=== PATIENT | female | born 1935 | race Caucasian/White ===

== ENCOUNTER 2017-09-15 19:58 | Inpatient (IN) | payer MEDICARE ==
[~2017-09-15] VITALS: Ht 160 cm; Wt 44.1 kg
--- NOTE | 2017-09-15 22:00 | NUR ---
TO BED 4 [facility] C/O PT RUFUSING TO EAT OR TAKE MEDS, AGRESSIVE AND COMBATIVE PER EMT TRANSPORT REPORT. PT CONFUSED, NO ACUTE DISTRESS NOTED, RESP EVEN AND UNLABORED. PENDING ER MD VILLARREAL.
[2017-09-15] MEDS ORDERED: OLANZAPINE 10 MG VIAL IM ONE ×2 (22:17→22:30)
--- NOTE | 2017-09-15 22:22 | NUR ---
PT MEDICATED ORDERED.
[2017-09-15 23:00] LABS: CALCIUM, SERUM 8.4 mg/dL (8.5-10.1); CARBON DIOXIDE 30 mmol/L (21-32); CHLORIDE 113 mmol/L (98-107); CREATININE 0.9 mg/dL (0.6-1.3); GLUCOSE 91 mg/dL (74-106); POTASSIUM 2.9 mmol/L (3.5-5.1); SODIUM SERUM 151 mmol/L (136-145); UREA NITROGEN, BLOOD 22 mg/dL (7-18)
[2017-09-15 23:02] LABS: INR 0.93 (0.87-1.13); PROTHROMBIN TIME 9.7 SECS (9.5-12.7)
[2017-09-15 23:04] LABS: BASOPHILS % (AUTO) 0.7 % (0.0-2.0); EOSINOPHILS # (AUTO) 0.1 /CMM (0.0-0.7); EOSINOPHILS % (AUTO) 2.2 % (0.0-6.0); HEMATOCRIT 39 % (33-45); HEMOGLOBIN 13.3 g/dL (11.5-14.8); LYMPHOCYTES # (AUTO) 1.1 /CMM (0.8-4.8); LYMPHOCYTES % (AUTO) 26.1 % (20.0-44.0); MEAN CORPUSCULAR HEMOGLOBIN 30 PG (26.0-33.0); MEAN CORPUSCULAR HGB CONC 34 g/dl (31.0-36.0); MEAN CORPUSCULAR VOLUME 90 fL (82-100); MONOCYTES # (AUTO) 0.5 /CMM (0.1-1.30); MONOCYTES % (AUTO) 11.1 % (2.0-12.0); NEUTROPHILS # (AUTO) 2.5 /CMM (1.8-8.9); NEUTROPHILS % (AUTO) 59.9 % (43.0-81.0); PLATELET COUNT (AUTO) 158 /CMM (150-450); RDW COEFFICIENT OF VARIATION 13.5 (11.5-15.0); RED BLOOD CELL COUNT(AUTO) 4.39 MIL/uL (4.0-5.2); WHITE BLOOD COUNT (AUTO) 4.2 K/uL (4.3-11.0)
[2017-09-15 23:09] LABS: ALANINE AMINOTRANSFERASE 36 U/L (12-78); ALBUMIN 2.7 g/dL (3.4-5.0); ALCOHOL, BLOOD < 3 mg/dL (0-0); ALKALINE PHOSPHATASE 72 U/L (46-116); ASPARTATE AMINOTRANSFERASE 32 U/L (15-37); BILIRUBIN,DIRECT 0.1 mg/dL (0.0-0.2); BILIRUBIN,TOTAL 0.3 mg/dL (0.2-1.0); TOTAL PROTEIN, SERUM 6.2 g/dL (6.4-8.2)
[2017-09-15 23:10] LABS: ACETAMINOPHEN < 2 ug/ml (10-30); SALICYLATE 0.8 mg/dL (2.8-20.0)
[2017-09-15] MEDS ORDERED: Magnesium 1 GM/2 ML VIAL IV ONE (23:30)
[2017-09-15] MEDS ORDERED: POTASSIUM CHLORIDE 20 MEQ TAB.PRT.SR PO ONE (23:30)
[2017-09-15] MEDS ORDERED: IV NS 0.9% 500 ML BAG IV ONE (23:30)
[2017-09-15] MEDS ORDERED: POTASSIUM CHLORIDE 10 MEQ TABLET.SA ONE (23:41)
[2017-09-15] MEDS ORDERED: Magnesium 1GM/D5W 100ML PREMIX 200 ML IV ONE (23:41)
[2017-09-16] MEDS ORDERED: LORAZEPAM INJ 2 MG/ML VIAL ONE
--- NOTE | 2017-09-16 00:01 | NUR ---
PT PULLED OUT SL, 2X2 APPLIED. RESTARTED ON THE L HAND 18G.
[2017-09-16] MEDS ORDERED: LORAZEPAM INJ 2 MG/ML VIAL IV ONE (01:00)
[2017-09-16] MEDS ORDERED: IV NS 0.9% 1,000 ML BAG IV ONE (01:00)
[2017-09-16 01:57] LABS: APPEARANCE,URINE SL CLOUDY (CLEAR); BILIRUBIN,URINE NEGATIVE (NEGATIVE); BLOOD, URINE NEGATIVE Ery/uL (NEGATIVE); COLOR,URINE YELLOW (YELLOW); KETONES,URINE TRACE (NEGATIVE); LEUKOCYTE ESTERASE ,URINE NEGATIVE (NEGATIVE); NITRITE, URINE NEGATIVE (NEGATIVE); PROTEIN,URINE TRACE mg/dl (NEGATIVE); UGLUCOSE NEGATIVE (NEGATIVE); UROBILINOGEN,URINE 0.2 EU/dL (0.2)
[2017-09-16] MEDS ORDERED: POTASSIUM CHLORIDE 20 MEQ TAB.PRT.SR PO ONE ×4 (02:00→17:30)
--- NOTE | 2017-09-16 02:10 | NUR ---
ER TALKING TO BABAK LIMA REGARDING PT ADMISSION.
[2017-09-16 02:29] LABS: BACTERIA,URINE Many /HPF (None Seen); RBC,URINE NONE SEEN /HPF (0-2); SQUAMOUS EPITHELIAL CELL,UR Few /HPF (None Seen); WBC,URINE 0-2 /HPF (0-3)
--- NOTE | 2017-09-16 02:31 | NUR ---
PT ASLEEP, NO ACUTE DISTRESS NOTED, RESP EVEN AND UNLABORED. CALL LIGHT WITHIN REACH. WILL CONTINUE TO MONITOR PT CLOSELY.
--- NOTE | 2017-09-16 02:37 | NUR ---
REPORT CALLED TO M/S KATELYNN HERNÁNDEZ. WILL TRANSPORT PT TO ROOM 311-1.
[2017-09-16 03:00] VITALS: BP 147/92
--- NOTE | 2017-09-16 03:00 | NUR ---
RECEIVED PATIENT FROM ER, AROUSEABLE BY VOICE AND TOUCH, NON-VERBAL, CALM AT THIS TIME, WAS GIVEN ATIVAN AND ZYPREXA IN ER SECONDARY TO COMBATIVENESS, LUNG SOUNDS ARE CLEAR ON AUSCULTATION, ON 2LPM VIA NC, SPO2 96%, ABDOMEN SOFT AND NON-TENDER, HYPOACTIVE BOWEL SOUNDS, LEFT HAND PERIPHERAL LINE IS FLUSHED AND SECURED WITH LENA SLEEVE, PATIENT PULLED OUT IV IN ER PER REPORT. NOTED GENERALIZED RASHES ON BILATERAL ARMS, BILATERAL FEET AND BILATERAL LEGS WITH SCRATCH PARKER AND SCANT DRY BLOOD. NOTIFIED NUTRITIONAL SERVICES HOST AND RECEIVED ORDER OF BILATERAL MITTENS. UNABLE TO ORIENT TO ROOM AND CALL LIGHT SECONDARY TO CONFUSION AND BEING SLEEPY. GIVEN SPONGE BATH, KEPT SAFE AND COMFORTABLE, BED ALARM TURNED ON FOR SAFETY.
[2017-09-16 03:30] VITALS: BP 147/92
[2017-09-16] MEDS ORDERED: ZOLPIDEM TARTRATE 5 MG TABLET PO PRN (04:30)
[2017-09-16] MEDS ORDERED: Z GUARD REMEDY 2 OZ OINT TP PRN (04:30)
[2017-09-16] MEDS ORDERED: ONDANSETRON HCL/PF 4 MG/2 ML VIAL IVP PRN (04:30)
[2017-09-16] MEDS ORDERED: ACETAMINOPHEN 325 MG TABLET PO PRN (04:30)
[2017-09-16] MEDS ORDERED: HYDROCODONE/APAP 5/325MG 1 EACH TABLET PO PRN (04:30)
[2017-09-16] MEDS ORDERED: MAGNESIUM HYDROXIDE 30 ML UDC PO PRN (04:30)
[2017-09-16] MEDS ORDERED: CEFTRIAXONE 1 G VIAL ONE (04:58)
[2017-09-16] MEDS: ENOXAPARIN SODIUM 40 MG/0.4 ML DISP.SYRIN SQ SCH (05:03)
[2017-09-16] MEDS: CEFTRIAXONE 1 G in IV D5W 50 ML IV SCH (05:04)
[2017-09-16] MEDS: IV NS 0.9% 1,000 ML IV PRN ×2 (05:04→17:46)
[2017-09-16 06:23] LABS: BASOPHILS % (AUTO) 0.6 % (0.0-2.0); EOSINOPHILS # (AUTO) 0.1 /CMM (0.0-0.7); EOSINOPHILS % (AUTO) 3.4 % (0.0-6.0); HEMATOCRIT 38 % (33-45); HEMOGLOBIN 12.9 g/dL (11.5-14.8); LYMPHOCYTES # (AUTO) 1.1 /CMM (0.8-4.8); LYMPHOCYTES % (AUTO) 32.8 % (20.0-44.0); MEAN CORPUSCULAR HEMOGLOBIN 31 PG (26.0-33.0); MEAN CORPUSCULAR HGB CONC 34 g/dl (31.0-36.0); MEAN CORPUSCULAR VOLUME 90 fL (82-100); MONOCYTES # (AUTO) 0.4 /CMM (0.1-1.30); MONOCYTES % (AUTO) 10.6 % (2.0-12.0); NEUTROPHILS # (AUTO) 1.8 /CMM (1.8-8.9); NEUTROPHILS % (AUTO) 52.6 % (43.0-81.0); PLATELET COUNT (AUTO) 120 /CMM (150-450); RDW COEFFICIENT OF VARIATION 14.1 (11.5-15.0); RED BLOOD CELL COUNT(AUTO) 4.19 MIL/uL (4.0-5.2); WHITE BLOOD COUNT (AUTO) 3.4 K/uL (4.3-11.0)
--- NOTE | 2017-09-16 06:28 | NUR ---
RN NOTES PATIENT IS AWAKE AND ALERT, UNABLE TO VERBALIZE NEEDS, DOES NOT NOT ANSWER TO QUESTIONS, NOT FOLLOWING SIMPLE COMMANDS, CONFUSED. NO SOB, NO DISTRESS, TOLERATING 2LPM VIA NC, SPO2 REMAINED 96%, LEFT HAND PERIPHERAL LINE IS PATENT AND INFUSING WELL. KEPT SAFE AND COMFORTABLE, CALL LIGHT WITHIN REACH.
[2017-09-16 06:43] LABS: CALCIUM, SERUM 7.7 mg/dL (8.5-10.1); CHLORIDE 113 mmol/L (98-107); CREATININE 0.8 mg/dL (0.6-1.3); GLUCOSE 83 mg/dL (74-106); MAGNESIUM 2.8 mg/dL (1.8-2.4); PHOSPHORUS 3.1 mg/dL (2.5-4.9); SODIUM SERUM 148 mmol/L (136-145); UREA NITROGEN, BLOOD 18 mg/dL (7-18)
[2017-09-16 06:57] LABS: CARBON DIOXIDE 30 mmol/L (21-32)
[2017-09-16 07:15] LABS: POTASSIUM 2.7 mmol/L (3.5-5.1)
[2017-09-16 08:00] VITALS: BP 130/73
--- NOTE | 2017-09-16 08:00 | NUR ---
M/S RN - AM Notes Received pt in bed awake, A/O x 1, no s/s of pain, no evidence of resp distress noted, afebrile. IVF NS @ 75 ml/hr infusing well on the left hand with no s/s of infiltrations. Skin assessment done and documented, turned and repositioned q2h and PRN. Bilateral mittens in place to prevent pulling out IV lines, see restraints flowsheet for notations. Aspiration precautions observed at all times. Fall precautions implemented. All needs anticipated and met. Will continue with current plan of care.
[2017-09-16] MEDS ORDERED: FLUO60SO3 TP (08:33)
--- NOTE | 2017-09-16 14:30 | NUR ---
M/S RN - Medication Pharmacist made aware that [facility] is out of potassium chloride oral at this time. Per pharm, they will refill stock.
--- NOTE | 2017-09-16 15:30 | NUR ---
M/S RN - Medication Follow-up call made to pharmacist regarding refill of oral potassium chloride. Per pharm, they're working on it.
[2017-09-16 16:00] VITALS: BP 136/75
--- NOTE | 2017-09-16 18:28 | NUR ---
M/S RN - Closing Notes No new events seen, no s/s of pain, VSS, continue with bilateral mittens to prevent pulling out IV line and oxygen tubings, mechanical restraints observed per protocol. Pt confused, reality orientation provided. Pending psych consult. Will continue with current medical management.
[2017-09-16 20:00] VITALS: BP_SYST 137; BP_SYST 141; BP_DIAS 64; BP_DIAS 87
--- NOTE | 2017-09-16 20:00 | NUR ---
RN NOTES PATIENT IN BED, ALERT AND ORIENTED X1, CONFUSED, RESTLESS, WITH EPISODE OF SCRATCHING ARMS AND LEGS TILL THEY BLEED AND ALSO PULLING OUT IV LINE, BILATERAL MITTENS ARE IN PLACED TO PREVENT FURTHER SELF INFLICTED INJURY. NON-VERBAL, NO SOB, TOLERATING 2LPM VIA NC, SPO2 95%, NOT IN APPARENT PAIN, LEFT HAND PERIPHERAL LINE IS PATENT AND INFUSING WELL. KEPT SAFE AND COMFORTABLE, BED ALARM TURNED ON. CALL LIGHT WITHIN REACH.
--- NOTE | 2017-09-17 00:40 | NUR ---
RN NOTES RENEWED ACUTE MEDICAL RESTRAINTS, PATIENT POSES DANGER TO SELF BY SCRATCHING ARMS AND LEGS TILL THEY BLEED. HAS PENDING ORDER FOR WOUND CARE
--- NOTE | 2017-09-17 01:26 | NUR ---
RN NOTES PER DAIRY EQUIPMENT SPECIALIST ANGELICA CAN GIVE LOVENOX SCHEDULED, PLT 120. WILL GIVE LOVENOX ORDERED
[2017-09-17] MEDS: CEFTRIAXONE 1 G in IV D5W 50 ML IV SCH (04:08)
[2017-09-17] MEDS: ENOXAPARIN SODIUM 40 MG/0.4 ML DISP.SYRIN SQ SCH (04:09)
--- NOTE | 2017-09-17 06:27 | NUR ---
RN NOTES PATIENT IN BED, ALERT AND AWAKE, RESTLESS, KEEPS MOVING IN BED, BILATERAL MITTENS IN PLACE DUE TO PATIENT PULLING OUT IV AND SCRATCHING SELF. NO ADVERSE CHANGE OF CONDITION DURING SHIFT, NEEDS ATTENDED, CALL LIGHT WITHIN REACH. BED ALARM TURNED ON.
[2017-09-17 08:00] VITALS: BP 140/73
--- NOTE | 2017-09-17 08:00 | NUR ---
RN NOTES RECEIVED PATIENT IN THE BED, A/O X1 CONFUSED, RESTLESS, UNABLE TO VERBALIZE SELF, PATIENT ON BILATERAL MITTENS ON FOR TRYING REMOVE IV, AND SCRATCHING . PATIENT ALSO GENERALIZED RASHES PATIENT ALL OVER THE BODY, V/S TABLE, IV LINE RIGHT FOREARM NS AT 75 ML/HR. INTACT. NEEDS ATTENDED AND ANTICIPATED, CALL LIGHT WITHIN TO REACH, BED ALARM ON, CONTINUED MONITORING.
[2017-09-17 09:05] LABS: CHOLESTEROL 148 mg/dL (<200); HDL CHOLESTEROL 63 mg/dL (40-60); LDL 68 mg/dL (0-99); TRIGLYCERIDES 79 mg/dL (30-150)
[2017-09-17] MEDS: IV NS 0.9% 1,000 ML IV PRN ×2 (09:32→22:12)
--- NOTE | 2017-09-17 12:00 | NUR ---
RN NOTES PATIENT IN THE BED, STABLE, SEEN BY DR PARKS, ASSIST TURN AND REPOSITION Q 2 HR, SAFETY PRECAUTION MAINTAINED ALL THE TIME.
[2017-09-17 12:47] LABS: CALCIUM, SERUM 8.1 mg/dL (8.5-10.1); CARBON DIOXIDE 25 mmol/L (21-32); CHLORIDE 117 mmol/L (98-107); CREATININE 0.7 mg/dL (0.6-1.3); GLUCOSE 73 mg/dL (74-106); MAGNESIUM 2.1 mg/dL (1.8-2.4); POTASSIUM 4.2 mmol/L (3.5-5.1); SODIUM SERUM 154 mmol/L (136-145); UREA NITROGEN, BLOOD 12 mg/dL (7-18)
[2017-09-17 13:29] LABS: BASOPHILS % (AUTO) 0.7 % (0.0-2.0); EOSINOPHILS # (AUTO) 0.2 /CMM (0.0-0.7); HEMATOCRIT 39 % (33-45); HEMOGLOBIN 13.3 g/dL (11.5-14.8); LYMPHOCYTES # (AUTO) 0.6 /CMM (0.8-4.8); LYMPHOCYTES % (AUTO) 17.9 % (20.0-44.0); MEAN CORPUSCULAR HEMOGLOBIN 31 PG (26.0-33.0); MEAN CORPUSCULAR HGB CONC 34 g/dl (31.0-36.0); MEAN CORPUSCULAR VOLUME 90 fL (82-100); MONOCYTES # (AUTO) 0.3 /CMM (0.1-1.30); MONOCYTES % (AUTO) 8.4 % (2.0-12.0); NEUTROPHILS # (AUTO) 2.1 /CMM (1.8-8.9); PLATELET COUNT (AUTO) 127 /CMM (150-450); RDW COEFFICIENT OF VARIATION 13.7 (11.5-15.0); RED BLOOD CELL COUNT(AUTO) 4.32 MIL/uL (4.0-5.2); WHITE BLOOD COUNT (AUTO) 3.2 K/uL (4.3-11.0)
[2017-09-17 16:00] VITALS: BP 159/70
--- NOTE | 2017-09-17 16:20 | NUR ---
RN NOTES PATIENT CONFUSED, NO ACUTE RESPIRATORY DISTRESS, PATIENT STILL HAS A BILATERAL HAND MITTENS, ALSO GET ORDER FOR ELIMITE CREAM FOR GENERALIZED RASH, CALL LIGHT WITHIN TO REACH, CONTINUED MONITORING.
[2017-09-17] MEDS ORDERED: PERMETHRIN 5% CRM 60 GM TUBE TP ONE (16:30)
--- NOTE | 2017-09-17 18:30 | NUR ---
RN NOTES PATIENT IN THE BED, NO ACUTE DISTRESS, INFUSING IV ON RIGHT FOREARM NS-AT 75 ML/HR, PATIENT HAS NO C/O PAIN, NEEDS ATTENDED AND ANTICIPATED, PATIENT FEEDER, HAS BILATERAL HANDS MITTENS, NEEDS ATTENDED AND ANTICIPATED. ENDORSED ONCOMING NURSE FOR CONTINUATION OF CARE.
--- NOTE | 2017-09-17 19:30 | NUR ---
MS RN INITIAL NOTES PT IS IN BED RESTING. BREATHING EVENLY AND UNLABORED ON RA, NO SIGNS OF SOB OR DISTRESS. IV ACCESS IS INTACT AND PATENT, INFUSING WITH NS. SOFT BILATERAL MITTEN RESTRAINTS IN PLACE. AWAITING CREAM FOR GENERALIZED RASH. PHARMACY HASN'T BROUGHT IT UP AND I GET NO RESPONSE WHEN I CALL PHARMACY. BED IS IN LOW AND LOCKED POSITION, CALL LIGHT WITHIN REACH. WILL CONTINUE TO MONITOR PT
[2017-09-17 20:31] VITALS: BP 140/72
[2017-09-18] MEDS: CEFTRIAXONE 1 G in IV D5W 50 ML IV SCH (03:57)
[2017-09-18] MEDS: ENOXAPARIN SODIUM 40 MG/0.4 ML DISP.SYRIN SQ SCH (04:00)
--- NOTE | 2017-09-18 06:17 | NUR ---
MS RN CLOSING NOTES PT IS IN BED RESTING, A/O X1. BILATERAL SOFT MITTEN RESTRAINTS ON AND RESTRAINT PROTOCOL FOLLOWED. NO SIGNS OF SOB OR DISTRESS. IV ACCESS IS INTACT AND PATENT, INFUSING. ALL NEEDS WERE ANTICIPATED AND MET. BED IS IN LOW AND LOCKED POSITION. WILL ENDORSE TO DAY SHIFT.
[2017-09-18 08:00] VITALS: BP 128/71
--- NOTE | 2017-09-18 08:00 | NUR ---
RN NOTES RECEIVED PATIENT IN THE BED SLEEPING, AROUSE WHEN CALLED NAME OR TOUCHED, V/S STABLE, NO ACUTE DISTRESS, IV LINE ON RIGHT FOREARM NS AT 75 ML/HR INTACT, ASSIST TURN AND REPOSITION Q 2 HR, CALL LIGHT WITHIN TO REACH, CONTINUED MONITORING.
[2017-09-18 08:03] LABS: BASOPHILS % (AUTO) 0.8 % (0.0-2.0); EOSINOPHILS # (AUTO) 0.2 /CMM (0.0-0.7); EOSINOPHILS % (AUTO) 7.7 % (0.0-6.0); HEMATOCRIT 34 % (33-45); HEMOGLOBIN 11.6 g/dL (11.5-14.8); LYMPHOCYTES # (AUTO) 0.9 /CMM (0.8-4.8); LYMPHOCYTES % (AUTO) 28.6 % (20.0-44.0); MEAN CORPUSCULAR HEMOGLOBIN 31 PG (26.0-33.0); MEAN CORPUSCULAR HGB CONC 34 g/dl (31.0-36.0); MEAN CORPUSCULAR VOLUME 90 fL (82-100); MONOCYTES # (AUTO) 0.4 /CMM (0.1-1.30); MONOCYTES % (AUTO) 12.8 % (2.0-12.0); NEUTROPHILS # (AUTO) 1.5 /CMM (1.8-8.9); NEUTROPHILS % (AUTO) 50.1 % (43.0-81.0); PLATELET COUNT (AUTO) 104 /CMM (150-450); RDW COEFFICIENT OF VARIATION 13.5 (11.5-15.0); RED BLOOD CELL COUNT(AUTO) 3.74 MIL/uL (4.0-5.2)
[2017-09-18 08:43] LABS: CALCIUM, SERUM 7.9 mg/dL (8.5-10.1); CARBON DIOXIDE 26 mmol/L (21-32); CHLORIDE 111 mmol/L (98-107); CREATININE 0.7 mg/dL (0.6-1.3); GLUCOSE 84 mg/dL (74-106); MAGNESIUM 1.9 mg/dL (1.8-2.4); POTASSIUM 3.3 mmol/L (3.5-5.1); SODIUM SERUM 145 mmol/L (136-145); UREA NITROGEN, BLOOD 7 mg/dL (7-18)
[2017-09-18 09:00] VITALS: BP 128/71
--- NOTE | 2017-09-18 09:51 | NUR ---
RN NOTES PATIENT IN THE BED ASSIST EATING, SEEN BY OT , HOB ELEVATED , ASSIST TURN AND REPOSITION Q 2 HR, PATIENT ON BILATERAL HANDS MITTENS FOR NOT PULLING IV, AND SCRATCHING, CONTINUED MONITORING.
--- NOTE | 2017-09-18 11:14 | NUR ---
RN NOTES PATIENT IN THE BED APPLIED ELIMITE CREAM ALL OVER THE BODY FOR BODY RASH, CONTINUED MONITORING.
[2017-09-18] MEDS ORDERED: POTASSIUM CHLORIDE 20 MEQ TAB.PRT.SR PO SCH (12:00)
--- NOTE | 2017-09-18 12:54 | NUR ---
RN NOTES ADMINISTERED NARCO 5/325 MG PO PRN FOR GENERALIZED PAIN, V/S TAKEN BP-128//71, P-67, CONTINUED MONITORING, ASSIST TURN AND REPOSITION Q 2HR.
[2017-09-18] MEDS: IV NS 0.9% 1,000 ML IV PRN (13:33)
[2017-09-18 16:00] VITALS: BP 145/75
--- NOTE | 2017-09-18 17:00 | NUR ---
RN NOTES PATIENT IN THE BED , MEDICATION WERE ADMINISTERED FOR PAIN EFFECTIVE, GOING TO HAVE A CT OF HEAD WITHOUT CONTRAST.
--- NOTE | 2017-09-18 18:30 | NUR ---
RN NOTES PATIENT IN THE BED, NO ACUTE DISTRESS, ASSIST EATING, ASSIST TURN AND REPOSITION Q 2 HR, MITTENS BILATERAL HANDS CHECKED CIRCULATION Q2 HR, ASSIST TURN AND REPOSITION Q 2 HR, PATIENT TOTAL CARE, NEEDS ATTENDED AND ANTICIPATED, IV LINE INTACT INFUSIN NS 75 ML/HR. ENDORSED ONCOMING NURSE FOR CONTINUATION OF CARE.
--- NOTE | 2017-09-18 19:46 | NUR ---
MS RN OPENING NOTES: RECEIVED PATIENT IN BED, ASLEEP, NOT IN RESPIRATORY DISTRESS THIS TIME OF ASSESSMENT. PATIENT WITH IVF ON RIGHT FA- G#22- NS RUNNING AT 75ML/HR. NO REDNESS, NO INFECTION, NO PHLEBITIS ON SITE NOTED THIS TIME. NO SIGNS OF FACIAL GRIMACE NOTED THIS TIME. PATIENT HAS BILATERAL MITTENS . PATIENT WAS GIVEN ELIMITE CREAM DURING THE DAY, AND IS DUE FOR SHOWER AT 2300. PLACED CALL LIGHT WITH IN PATIENT'S REACH. WILL CONTINUE TO MONITOR PATIENT.
[2017-09-18 20:00] VITALS: BP 157/76
--- NOTE | 2017-09-18 23:00 | NUR ---
MS PACE NOTES: PATIENT WAS GIVEN ELIMITE CREAM DURING DAY SHIFT, PER DAY SHIFT NURSE- PATIENT IS TO SHOWER AT 2300- SHOWER GIVEN ORDERED. KEPT PATIENT WARM AND DRY THEREAFTER. WILL CONTINUE TO MONITOR PATIENT. Addendum: 09/19/17 at 0035 by KENYON COLON DRESSING ON RIGHT FOREARM IV CHANGED TO STERILE DRESSING.
--- NOTE | 2017-09-19 00:34 | NUR ---
MS RN NOTES: PATIENT IN BED, ASLEEP. IVF ONGOING.NO SIGNS OF INFECTION ON SITE.
[2017-09-19] MEDS: IV NS 0.9% 1,000 ML IV PRN (03:33)
--- NOTE | 2017-09-19 04:24 | NUR ---
MS RN NOTES: PATIENT IN BED, SHE ACCIDENTALLY PULLED OUT HER IV LINE. REINSERTED TO A NEW SITE ON THE LEFT AC WITH G#22, WITH GOOD RETURN FLOW OF BLOOD. IVF FLUI RESTARTED. BILATERAL MITTEN RESTRAINTS IN PLACE, CIRCULATION NOT IMPEDED. WILL CONTINUE TO MONITOR PATIENT.
[2017-09-19] MEDS: CEFTRIAXONE 1 G in IV D5W 50 ML IV SCH (04:25)
[2017-09-19] MEDS: ENOXAPARIN SODIUM 40 MG/0.4 ML DISP.SYRIN SQ SCH (04:51)
--- NOTE | 2017-09-19 07:00 | NUR ---
MS RN CLOSING NOTES: PATIENT IN BED, ASLEEP, WITH IVF ON GOING ON LEFT AC G#22. NO COMPLAINS OF PAIN, NO FACIAL GRIMACE NOTED THIS TIME OF ASSESSMENT. PLACED CALL OROURKE WITHIN PATIENT'S REACH. WILL ENDORSE PATIENT TO DAY SHIFT NURSE.
--- NOTE | 2017-09-19 07:46 | NUR ---
MS RN OPENING NOTES RECEIVED PT FROM NIGHTSHIFT NURSE IN STABLE CONDITION. PT IS A/O 1 AND CONFUSED. NO SOB OR SIGNS OF DISTRESS NOTED. BREATHING IS EVEN AND UNLABORED. BILATERAL MITTENS NOTED PT IS ATTEMPTING TO REMOVE INVASIVE LINES PER NIGHTSHIFT NURSE. IV NOTED TO LEFT AC 22G TO BE PATENT AND INTACT. NO REDNESS OR SIGNS OF INFILTRATION NOTED. BED IN LOW LOCKED POSITION, SIDE RAILS UP X3, CALL LIGHT WITHIN REACH, BED ALARM ON. WILL CONTINUE TO MONITOR
[2017-09-19 07:55] LABS: BASOPHILS % (AUTO) 0.7 % (0.0-2.0); EOSINOPHILS # (AUTO) 0.2 /CMM (0.0-0.7); EOSINOPHILS % (AUTO) 6.2 % (0.0-6.0); HEMATOCRIT 36 % (33-45); HEMOGLOBIN 12.4 g/dL (11.5-14.8); LYMPHOCYTES # (AUTO) 1.4 /CMM (0.8-4.8); LYMPHOCYTES % (AUTO) 35.7 % (20.0-44.0); MEAN CORPUSCULAR HEMOGLOBIN 31 PG (26.0-33.0); MEAN CORPUSCULAR HGB CONC 35 g/dl (31.0-36.0); MEAN CORPUSCULAR VOLUME 89 fL (82-100); MONOCYTES # (AUTO) 0.4 /CMM (0.1-1.30); MONOCYTES % (AUTO) 9.9 % (2.0-12.0); NEUTROPHILS # (AUTO) 1.8 /CMM (1.8-8.9); NEUTROPHILS % (AUTO) 47.5 % (43.0-81.0); PLATELET COUNT (AUTO) 108 /CMM (150-450); RED BLOOD CELL COUNT(AUTO) 4.03 MIL/uL (4.0-5.2); WHITE BLOOD COUNT (AUTO) 3.8 K/uL (4.3-11.0)
[2017-09-19 08:00] VITALS: BP 121/68
[2017-09-19 08:55] LABS: CALCIUM, SERUM 8.1 mg/dL (8.5-10.1); CREATININE 0.8 mg/dL (0.6-1.3); GLUCOSE 80 mg/dL (74-106); MAGNESIUM 1.8 mg/dL (1.8-2.4); PHOSPHORUS 3.3 mg/dL (2.5-4.9); UREA NITROGEN, BLOOD 7 mg/dL (7-18)
[2017-09-19 09:28] LABS: CARBON DIOXIDE 27 mmol/L (21-32); CHLORIDE 111 mmol/L (98-107); POTASSIUM 3.7 mmol/L (3.5-5.1); SODIUM SERUM 143 mmol/L (136-145)
--- NOTE | 2017-09-19 17:45 | NUR ---
MS RECYCLING COORDINATOR NOTES PT WAS DISCHARGED FROM FACILITY IN STABLE CONDITION. ALL NEEDS MET DURING SHIFT AND ORDERS CARRIED OUT ACCORDINGLY. PT'S ASSISTED LIVING NOTIFIED OF HER DISCHARGE AND THAT SHE WILL BE ARRIVING SHORTY. THEY WERE ALSO NOTIFIED THAT SHE HAS A NEW PRESCRIPTION. PT LEFT WITH ALL BELONGINGS. IV SUCCESSFULLY REMOVED WITH NO COMPLICATIONS. PT COULD NOT SIGN DISCHARGE INSTRUCTIONS DUE TO MENTAL STATUS. MYSELF AND A FELLOW RN SIGNED ALL DISCHARGE INSTRUCTIONS. COPY OF FORMS GIVEN TO AMBULANCE [id number]
== END 2017-09-19 17:45 | DRG 640 ==
LOC: ER 20:01 → MED 09-16 03:08
PROVIDERS: ADMIT Nurse Practitioner Acute Care; ATTEND Nurse Practitioner Acute Care
DX: E87.0 Hyperosmolality and hypernatremia (principal); G93.41 Metabolic encephalopathy; E44.0 Moderate protein-calorie malnutrition; F03.90 Unspecified dementia, unspecified severity, without behavioral disturbance, psychotic disturbance, mood disturbance, and anxiety; Z68.1 Body mass index [BMI] 19.9 or less, adult; E87.6 Hypokalemia; E78.5 Hyperlipidemia, unspecified; I10 Essential (primary) hypertension; Z73.6 Limitation of activities due to disability; I70.90 Unspecified atherosclerosis; B86 Scabies
CPT/HCPCS: 36415; 70450-TC; 80048-TC; 80061-TC; 80076-TC; 80305; 81000-TC; 83735-TC; 84100-TC; 85025-TC; 85610-TC; 87086-TC; 92521; G0480; J0696; J1650; J2060; J3475; J3490; J7030; J7040; J7060